=== PATIENT | female | born 1985 | race Caucasian/White ===

== ENCOUNTER 2021-01-04 22:00 | Emergency (ER) | payer MEDICAID ==
[~2021-01-04] VITALS: Ht 165.1 cm; Wt 145.5 kg
[~2021-01-04 22:00] MED LIST: DIPH25CA61 PO; LORA-702 PO
[2021-01-04 22:06] VITALS: BP 142/88
--- NOTE | 2021-01-04 22:41 | NUR ---
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
--- NOTE | 2021-01-04 23:07 | NUR ---
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
--- NOTE | 2021-01-05 00:13 | NUR ---
Patient/Caregiver given discharge instructions and they have confirmed that they understand the instructions. Patient ambulatory with steady gait. NAD, all questions answered appropriately, denies additional needs at this time. No personal belongings left in room after discharge.
== END 2021-01-05 00:15 | disposition home or self-care (01) ==
LOC: ED 23:00
DX: L50.0 Allergic urticaria (principal)
CPT/HCPCS: 99282